=== PATIENT | male | born 1955 | race Caucasian/White ===

== ENCOUNTER 2022-05-07 09:06 | Inpatient (IN) ==
[2022-05-07 09:56] LABS: Basophils # 0.1 10*3/uL (0.0-0.2); Basophils % 0.5 % (0.0-0.8); Eosinophils # 0.3 10*3/uL (0.0-0.87); Eosinophils % 3.1 % (0.00-10.9); Hematocrit 33.5 VOL% (42.0-52.0); Hemoglobin 10.4 GM/DL (14.0-18.0); Immature Granulocytes Absolute 0.09 #; Lymphocytes # 0.7 10*3/uL (1.4-4.0); Lymphocytes % 7.8 % (21.2-54.2); Mean Corpuscular Volume 86.3 FL (87-102); Mean Platelet Volume 9.3 FL (9.6-12.0); Monocytes # 0.7 10*3/uL (0.11-0.8); Monocytes % 7.5 % (1.7-12.7); Neutrophils % 80.1 % (38.7-73.9); Platelet Count 191 T/CUMM (130-400); Red Blood Count 3.88 MC/CUMM (3.8-5.5); Red Cell Distribution Width 16.1 % (9.3-17.3); White Blood Count 9.5 T/CUMM (4-12)
[2022-05-07 10:16] LABS: Albumin 2.7 G/DL (3.4-5.0); Bilirubin,Total 2.1 MG/DL (0.20-1.00); Calcium 8.8 MG/DL (8.5-10.1); Osmolality,Calculated 296.3 MOS/KG (273-304); Potassium 4.4 MMOL/L (3.5-5.1); Total Protein 7.1 G/DL (6.4-8.2)
[2022-05-07 10:23] LABS: Risk Ratio 3.76
[2022-05-07] MEDS ORDERED: GLUCAGON 1 MG VIAL IM PRN (11:54)
[2022-05-07] MEDS ORDERED: ONDANSETRON 4 MG/2 ML VIAL IV PRN (12:00)
[2022-05-07 12:05] LABS: INR 1.1; PT Patient Result 11.9 SECS (10.1-12.1); Partial Thromboplastin Time 35.9 SECS (23.7-32.9)
[2022-05-07] MEDS ORDERED: DEXTROSE 10% 250 ML BAG IV PRN (13:08)
[2022-05-07] MEDS: SODIUM CHLORIDE 0.9% 1,000 ML IV SCH ×2 (13:25→20:16)
[2022-05-07] MEDS ORDERED: MIDAZOLAM 2 MG/2 ML VIAL IV ONE (13:30)
[2022-05-07] MEDS ORDERED: fentaNYL 100 MCG/2 ML VIAL IV ONE (13:30)
[2022-05-07] MEDS ORDERED: LEVOFLOXACIN INJ 500 MG/100 ML PREMIX IV ONE ×2 (13:30→13:35)
[2022-05-07] MEDS ORDERED: MORPHINE 2 MG/1 ML SYRINGE IV PRN (15:31)
[2022-05-07 16:20] LABS: % Iron Saturation 12.5 % (18-50); Ferritin 914.6 ng/mL (26-388)
[2022-05-07] MEDS: PANTOPRAZOLE 40 MG TABLET PO SCH (17:08)
[2022-05-07] MEDS: DOCUSATE SODIUM 100 MG CAPSULE PO SCH (20:37)
[2022-05-07] MEDS: ZALEPLON 5 MG CAPSULE PO PRN (23:02)
[2022-05-08] MEDS: SODIUM CHLORIDE 0.9% 1,000 ML IV SCH (03:12)
[2022-05-08 05:17] LABS: Basophils % 0.1 % (0.0-0.8); Hemoglobin 9.6 GM/DL (14.0-18.0); Immature Granulocytes % 1.8 %; Lymphocytes # 0.3 10*3/uL (1.4-4.0); Lymphocytes % 1.6 % (21.2-54.2); Mean Corpuscular Volume 86.1 FL (87-102); Mean Platelet Volume 9.3 FL (9.6-12.0); Monocytes # 0.8 10*3/uL (0.11-0.8); Monocytes % 4.8 % (1.7-12.7); Neutrophils % 91.7 % (38.7-73.9); Platelet Count 150 T/CUMM (130-400); Red Cell Distribution Width 16.3 % (9.3-17.3); White Blood Count 16.6 T/CUMM (4-12)
[2022-05-08 05:48] LABS: Albumin 2.2 G/DL (3.4-5.0); Bilirubin,Total 2.8 MG/DL (0.20-1.00); Calcium 8.1 MG/DL (8.5-10.1); Osmolality,Calculated 296.4 MOS/KG (273-304); Potassium 5.1 MMOL/L (3.5-5.1); Total Protein 6.4 G/DL (6.4-8.2)
[2022-05-08 05:50] LABS: Hypochromia Slight; Lymphocytes 3 % (20-55); Microcytosis Slight; Platelet Estimate Adequate; Total Cells Counted 100
[2022-05-08 07:24] LABS: Total Protein (Chem) 7.1 G/DL (6.4-8.3)
[2022-05-08] MEDS ORDERED: cefTRIAXone 1,000 MG in SODIUM CHLORIDE 0.9% 100 ML IV SCH (08:00)
[2022-05-08 09:25] LABS: Albumin (SPE) 3.8 G/DL (3.2-5.3); Albumin (SPE) Rel % 53.4 %; Alpha 1 (SPE) 0.4 G/DL (0.1-0.4); Alpha 2 (SPE) 1.1 G/DL (0.4-1.0); Alpha 2 (SPE) Rel % 14.9 %; Beta (SPE) Rel % 13.9 %; Gamma (SPE) 0.8 G/DL (0.7-1.7); Gamma (SPE) Rel % 11.8 %
[2022-05-08] MEDS: DOCUSATE SODIUM 100 MG CAPSULE PO SCH ×2 (09:36→20:25)
[2022-05-08] MEDS: PANTOPRAZOLE 40 MG TABLET PO SCH (09:36)
[2022-05-08] MEDS ORDERED: cefTRIAXone 1,000 MG in SODIUM CHLORIDE 0.9% 100 ML IV ONE (10:49)
[2022-05-08] MEDS ORDERED: DIAZEPAM 5 MG TABLET PO ONE (13:00)
[2022-05-08] MEDS ORDERED: ONDANSETRON 4 MG/2 ML VIAL ONE (13:16)
[2022-05-08] MEDS ORDERED: LIDOCAINE 2% 5 ML VIAL ONE (13:16)
[2022-05-08] MEDS ORDERED: SEVOFLURANE 1 UNIT/15 MINUTE INH ONE ×2 (13:16→15:22)
[2022-05-08] MEDS ORDERED: MIDAZOLAM 2 MG/2 ML VIAL ONE ×2 (13:16)
[2022-05-08] MEDS ORDERED: DEXAMETHASONE 4 MG/1 ML VIAL ONE (13:16)
[2022-05-08] MEDS ORDERED: fentaNYL 100 MCG/2 ML VIAL ONE ×2 (13:16→14:07)
[2022-05-08] MEDS ORDERED: SUCCINYLCHOLINE 200 MG/10 ML VIAL ONE (13:16)
[2022-05-08] MEDS ORDERED: propofoL 200 MG/20 ML VIAL IV ONE (13:16)
[2022-05-08] MEDS ORDERED: ROCURONIUM 50 MG/5 ML VIAL IV ONE (13:18)
[2022-05-08] MEDS ORDERED: LACTATED RINGERS 1,000 ML IV SCH (13:30)
[2022-05-08] MEDS ORDERED: PHENYLEPHRINE 1 MG/10 ML SYRINGE IV ONE (14:21)
[2022-05-08] MEDS ORDERED: PHENYLEPHRINE 10 MG/1 ML VIAL IV ONE (14:52)
[2022-05-08] MEDS ORDERED: LACTATED RINGERS 1,000 ML IV ONE (14:56)
[2022-05-08] MEDS ORDERED: SODIUM CHLORIDE 0.9% 250 ML IV ONE (14:56)
[2022-05-08] MEDS ORDERED: diphenhydrAMINE 50 MG/1 ML VIAL IV PRN (15:44)
[2022-05-08] MEDS ORDERED: ONDANSETRON 4 MG/2 ML VIAL IV PRN (15:44)
[2022-05-08] MEDS ORDERED: MEPERIDINE 25 MG/1 ML VIAL IV PRN (15:44)
[2022-05-08] MEDS ORDERED: PROMETHAZINE INJ 25 MG in SODIUM CHLORIDE 0.9% 50 ML IV PRN (15:44)
[2022-05-08 15:45] LABS: Bilirubin,Urine Small mg/dL (Negative); Blood, Urine Small mg/dL (Negative); Glucose,Urine (UA) Negative (Negative); Ketones,Urine 15 mg/dL (Negative); Nitrite,Urine Negative (Negative); Protein,Urine 30 mg/dL (Negative); RBC,Urine 23 /HPF (0-4); Squamous Epithelial Cell,Urine Occasional /HPF (0-10); Urine Appearance Clear (Clear); Urine Color Yellow (Yellow); Urine Specific Gravity 1.015 (1.001-1.035); Urine Urobilinogen 0.2 eU/dL (<2.0)
[2022-05-08] MEDS: HYDROmorphone 1 MG/1 ML SYRINGE IV PRN ×2 (16:00→16:05)
[2022-05-08] MEDS: BICALUTAMIDE 50 MG TABLET PO SCH (17:50)
[2022-05-08] MEDS: ZALEPLON 5 MG CAPSULE PO PRN (20:24)
[2022-05-09 05:47] LABS: Basophils % 0.2 % (0.0-0.8); Eosinophils % 0.2 % (0.00-10.9); Hematocrit 31.4 VOL% (42.0-52.0); Hemoglobin 9.7 GM/DL (14.0-18.0); Immature Granulocytes % 6.1 %; Immature Granulocytes Absolute 1.05 #; Lymphocytes # 0.8 10*3/uL (1.4-4.0); Lymphocytes % 4.4 % (21.2-54.2); Mean Corpuscular HGB Conc 30.9 GM/DL (32-36); Mean Corpuscular Volume 86.3 FL (87-102); Mean Platelet Volume 9.8 FL (9.6-12.0); Monocytes % 5.7 % (1.7-12.7); Neutrophils % 83.4 % (38.7-73.9); Platelet Count 168 T/CUMM (130-400); Red Blood Count 3.64 MC/CUMM (3.8-5.5); Red Cell Distribution Width 16.7 % (9.3-17.3); White Blood Count 17.3 T/CUMM (4-12)
[2022-05-09 06:08] LABS: Hypochromia Slight; Lymphocytes 2 % (20-55); Microcytosis Slight; Platelet Estimate Adequate; Total Cells Counted 100
[2022-05-09 06:17] LABS: Albumin 2.2 G/DL (3.4-5.0); Bilirubin,Total 1.6 MG/DL (0.20-1.00); Calcium 8.5 MG/DL (8.5-10.1); Osmolality,Calculated 298.4 MOS/KG (273-304); Potassium 5.4 MMOL/L (3.5-5.1); Total Protein 6.6 G/DL (6.4-8.2)
[2022-05-09] MEDS ORDERED: cefTRIAXone 1,000 MG VIAL IM SCH (08:00)
[2022-05-09] MEDS ORDERED: SODIUM POLYSTYRENE SULFATE 15 GM/60 ML BOTTLE PO ONE (08:00)
[2022-05-09] MEDS: BICALUTAMIDE 50 MG TABLET PO SCH (09:09)
[2022-05-09] MEDS: DOCUSATE SODIUM 100 MG CAPSULE PO SCH ×2 (09:09→21:52)
[2022-05-09] MEDS: PANTOPRAZOLE 40 MG TABLET PO SCH (09:09)
[2022-05-09] MEDS: cefTRIAXone 1,000 MG in SODIUM CHLORIDE 0.9% 100 ML IV SCH (10:23)
[2022-05-09] MEDS: FERRIC GLUCONATE COMPLEX 125 MG in SODIUM CHLORIDE 0.9% 100 ML IV SCH (11:18)
[2022-05-09] MEDS: SODIUM BICARB INJ 50 MEQ in SODIUM CHLORIDE 0.45% 1,000 ML IV SCH ×2 (12:35→23:57)
[2022-05-09] MEDS: ZALEPLON 5 MG CAPSULE PO PRN (21:52)
[2022-05-10 07:11] LABS: Basophils # 0.1 10*3/uL (0.0-0.2); Basophils % 0.6 % (0.0-0.8); Eosinophils # 0.7 10*3/uL (0.0-0.87); Eosinophils % 3.5 % (0.00-10.9); Hematocrit 31.1 VOL% (42.0-52.0); Hemoglobin 9.6 GM/DL (14.0-18.0); Immature Granulocytes % 8.2 %; Immature Granulocytes Absolute 1.57 #; Lymphocytes # 1.3 10*3/uL (1.4-4.0); Lymphocytes % 6.8 % (21.2-54.2); Mean Corpuscular HGB Conc 30.9 GM/DL (32-36); Mean Corpuscular Volume 86.6 FL (87-102); Mean Platelet Volume 9.4 FL (9.6-12.0); Monocytes # 1.3 10*3/uL (0.11-0.8); Neutrophils % 73.9 % (38.7-73.9); Platelet Count 157 T/CUMM (130-400); Red Blood Count 3.59 MC/CUMM (3.8-5.5); Red Cell Distribution Width 16.9 % (9.3-17.3); White Blood Count 19.3 T/CUMM (4-12)
[2022-05-10 07:30] LABS: Albumin 2.1 G/DL (3.4-5.0); Bilirubin,Total 1.3 MG/DL (0.20-1.00); Calcium 8.8 MG/DL (8.5-10.1); Potassium 4.7 MMOL/L (3.5-5.1); Total Protein 6.6 G/DL (6.4-8.2)
[2022-05-10 07:33] LABS: Band Neutrophils 1 % (0-10); Eosinophils 6 % (0-10); Lymphocytes 4 % (20-55); Platelet Estimate Adequate; Total Cells Counted 100
[2022-05-10 07:34] LABS: Hypochromia Slight; Microcytosis Slight
[2022-05-10] MEDS: BICALUTAMIDE 50 MG TABLET PO SCH (08:59)
[2022-05-10] MEDS: PANTOPRAZOLE 40 MG TABLET PO SCH (09:00)
[2022-05-10] MEDS: DOCUSATE SODIUM 100 MG CAPSULE PO SCH ×2 (09:00→21:00)
[2022-05-10 10:09] LABS: Mucus,Urine Occasional /LPF (Occasional); RBC,Urine 606 /HPF (0-4)
[2022-05-10 10:10] LABS: Bilirubin,Urine Negative (Negative); Blood, Urine Large mg/dL (Negative); Glucose,Urine (UA) Negative (Negative); Ketones,Urine Negative (Negative); Nitrite,Urine Negative (Negative); Protein,Urine 100 mg/dL (Negative); Urine Appearance Slightly Cloudy (Clear); Urine Color Dark Yellow (Yellow); Urine Specific Gravity 1.015 (1.001-1.035); Urine Urobilinogen 0.2 eU/dL (<2.0); Urine pH 5.5 (4.5-8.0)
[2022-05-10] MEDS: SODIUM BICARB INJ 50 MEQ in SODIUM CHLORIDE 0.45% 1,000 ML IV SCH ×4 (10:46→22:56)
[2022-05-10] MEDS: FERRIC GLUCONATE COMPLEX 125 MG in SODIUM CHLORIDE 0.9% 100 ML IV SCH (10:56)
[2022-05-10] MEDS: cefTRIAXone 1,000 MG in SODIUM CHLORIDE 0.9% 100 ML IV SCH (12:04)
[2022-05-10] MEDS: HYDROmorphone 1 MG/1 ML SYRINGE IV PRN (22:34)
[2022-05-11] MEDS: SODIUM BICARB INJ 50 MEQ in SODIUM CHLORIDE 0.45% 1,000 ML IV SCH (04:30)
[2022-05-11 04:59] LABS: Basophils # 0.1 10*3/uL (0.0-0.2); Basophils % 0.5 % (0.0-0.8); Eosinophils # 0.6 10*3/uL (0.0-0.87); Eosinophils % 3.7 % (0.00-10.9); Hematocrit 29.9 VOL% (42.0-52.0); Immature Granulocytes % 6.3 %; Immature Granulocytes Absolute 1.01 #; Lymphocytes # 1.6 10*3/uL (1.4-4.0); Lymphocytes % 9.9 % (21.2-54.2); Mean Corpuscular HGB Conc 30.1 GM/DL (32-36); Mean Corpuscular Volume 86.7 FL (87-102); Mean Platelet Volume 10.2 FL (9.6-12.0); Monocytes # 1.4 10*3/uL (0.11-0.8); Monocytes % 8.5 % (1.7-12.7); Neutrophils % 71.1 % (38.7-73.9); Platelet Count 151 T/CUMM (130-400); Red Blood Count 3.45 MC/CUMM (3.8-5.5); Red Cell Distribution Width 17.1 % (9.3-17.3)
[2022-05-11 05:39] LABS: Eosinophils 4 % (0-10); Hypochromia 1+; Lymphocytes 8 % (20-55); Metamyelocytes 2 %; Microcytosis 1+; Platelet Estimate Adequate; Promyelocytes 1 %; Total Cells Counted 100
[2022-05-11 05:46] LABS: Albumin 1.9 G/DL (3.4-5.0); Bilirubin,Total 0.8 MG/DL (0.20-1.00); Calcium 8.1 MG/DL (8.5-10.1); Total Protein 6.1 G/DL (6.4-8.2)
[2022-05-11] MEDS: BICALUTAMIDE 50 MG TABLET PO SCH (08:59)
[2022-05-11] MEDS: DOCUSATE SODIUM 100 MG CAPSULE PO SCH ×2 (08:59→20:36)
[2022-05-11] MEDS: PANTOPRAZOLE 40 MG TABLET PO SCH (08:59)
[2022-05-11] MEDS: FERRIC GLUCONATE COMPLEX 125 MG in SODIUM CHLORIDE 0.9% 100 ML IV SCH (09:31)
[2022-05-11] MEDS: cefTRIAXone 1,000 MG in SODIUM CHLORIDE 0.9% 100 ML IV SCH (11:08)
[2022-05-11] MEDS: ALBUTEROL/IPRATROPIUM 3 ML NEB RESP TX SCH ×3 (11:23→20:04)
[2022-05-11] MEDS: CALCIUM (CARBONATE)/VITAMIN D 600 MG-400 UNIT TABLET PO SCH ×2 (12:36→20:36)
[2022-05-11] MEDS: SODIUM BICARBONATE 650 MG TABLET PO SCH ×2 (15:51→20:36)
[2022-05-11] MEDS: HYDROmorphone 1 MG/1 ML SYRINGE IV PRN (22:13)
[2022-05-11 22:26] LABS: Total Protein 24 Hr Ur Result 3960 MG/24HR (0-149.1); Total Volume,Urine 3000 ML (400-2000)
[2022-05-12] MEDS: ALBUTEROL/IPRATROPIUM 3 ML NEB RESP TX SCH ×5 (00:42→23:57)
[2022-05-12 05:34] LABS: Basophils # 0.1 10*3/uL (0.0-0.2); Basophils % 0.8 % (0.0-0.8); Eosinophils # 0.6 10*3/uL (0.0-0.87); Hematocrit 29.6 VOL% (42.0-52.0); Immature Granulocytes % 10.5 %; Immature Granulocytes Absolute 1.67 #; Lymphocytes # 1.7 10*3/uL (1.4-4.0); Lymphocytes % 10.9 % (21.2-54.2); Mean Corpuscular HGB Conc 30.4 GM/DL (32-36); Mean Corpuscular Volume 86.3 FL (87-102); Monocytes # 1.4 10*3/uL (0.11-0.8); Monocytes % 8.8 % (1.7-12.7); Platelet Count 158 T/CUMM (130-400); Red Blood Count 3.43 MC/CUMM (3.8-5.5); Red Cell Distribution Width 16.7 % (9.3-17.3); White Blood Count 15.9 T/CUMM (4-12)
[2022-05-12 06:00] LABS: Albumin 1.9 G/DL (3.4-5.0); Bilirubin,Total 0.6 MG/DL (0.20-1.00); Calcium 8.5 MG/DL (8.5-10.1); Osmolality,Calculated 305.8 MOS/KG (273-304); Potassium 3.8 MMOL/L (3.5-5.1); Total Protein 6.1 G/DL (6.4-8.2)
[2022-05-12 06:26] LABS: Folate 8.39 NG/ML (5.38-24.0)
[2022-05-12 08:24] LABS: Band Neutrophils 1 % (0-10); Eosinophils 5 % (0-10); Lymphocytes 8 % (20-55); Microcytosis 1+; Promyelocytes 2 %; Total Cells Counted 100
[2022-05-12 08:25] LABS: Hypochromia Slight; Platelet Estimate Adequate
[2022-05-12] MEDS: BICALUTAMIDE 50 MG TABLET PO SCH (09:43)
[2022-05-12] MEDS: CALCIUM (CARBONATE)/VITAMIN D 600 MG-400 UNIT TABLET PO SCH ×2 (09:44→20:24)
[2022-05-12] MEDS: DOCUSATE SODIUM 100 MG CAPSULE PO SCH ×2 (09:44→20:24)
[2022-05-12] MEDS: SODIUM BICARBONATE 650 MG TABLET PO SCH ×3 (09:44→20:24)
[2022-05-12] MEDS: PANTOPRAZOLE 40 MG TABLET PO SCH (09:44)
[2022-05-12] MEDS: FERRIC GLUCONATE COMPLEX 125 MG in SODIUM CHLORIDE 0.9% 100 ML IV SCH (09:46)
[2022-05-12] MEDS: cefTRIAXone 1,000 MG in SODIUM CHLORIDE 0.9% 100 ML IV SCH (11:14)
[2022-05-12] MEDS: HYDROmorphone 1 MG/1 ML SYRINGE IV PRN (21:45)
[2022-05-13 05:58] LABS: Basophils # 0.2 10*3/uL (0.0-0.2); Basophils % 0.9 % (0.0-0.8); Eosinophils # 0.6 10*3/uL (0.0-0.87); Eosinophils % 3.4 % (0.00-10.9); Hematocrit 29.2 VOL% (42.0-52.0); Immature Granulocytes % 15.8 %; Immature Granulocytes Absolute 2.79 #; Lymphocytes # 1.7 10*3/uL (1.4-4.0); Lymphocytes % 9.6 % (21.2-54.2); Mean Corpuscular HGB Conc 30.8 GM/DL (32-36); Mean Corpuscular Volume 86.6 FL (87-102); Mean Platelet Volume 9.6 FL (9.6-12.0); Monocytes # 1.4 10*3/uL (0.11-0.8); Monocytes % 7.8 % (1.7-12.7); NRBC # 0.02 10*3/uL; Neutrophils % 62.5 % (38.7-73.9); Platelet Count 171 T/CUMM (130-400); Red Blood Count 3.37 MC/CUMM (3.8-5.5); Red Cell Distribution Width 16.6 % (9.3-17.3); White Blood Count 17.7 T/CUMM (4-12)
[2022-05-13 06:19] LABS: Band Neutrophils 4 % (0-10); Eosinophils 3 % (0-10); Lymphocytes 10 % (20-55); Total Cells Counted 100
[2022-05-13 06:20] LABS: Platelet Estimate Adequate
[2022-05-13 06:21] LABS: Hypochromia Slight; Microcytosis Slight
[2022-05-13 06:25] LABS: Bilirubin,Total 0.6 MG/DL (0.20-1.00); Calcium 8.6 MG/DL (8.5-10.1); Osmolality,Calculated 306.6 MOS/KG (273-304); Potassium 3.8 MMOL/L (3.5-5.1); Total Protein 6.3 G/DL (6.4-8.2)
[2022-05-13] MEDS: ALBUTEROL/IPRATROPIUM 3 ML NEB RESP TX SCH ×3 (07:09→19:44)
[2022-05-13] MEDS ORDERED: ERGOCALCIFEROL 50,000 UNIT CAPSULE PO SCH (09:00)
[2022-05-13] MEDS: BICALUTAMIDE 50 MG TABLET PO SCH (09:24)
[2022-05-13] MEDS: SODIUM BICARBONATE 650 MG TABLET PO SCH ×3 (09:24→20:06)
[2022-05-13 09:25] LABS: Albumin (UPE) Rel % 32.7 %; Alpha 1 (UPE) 233.6 MG/24H; Alpha 1 (UPE) Rel % 5.9 %; Alpha 2 (UPE) 649.4 MG/24H; Alpha 2 (UPE) Rel % 16.4 %; Beta (UPE) 930.6 MG/24H; Beta (UPE) Rel % 23.5 %; Gamma (UPE) 851.4 MG/24H; Gamma (UPE) Rel % 21.5 %
[2022-05-13] MEDS: PANTOPRAZOLE 40 MG TABLET PO SCH (09:25)
[2022-05-13] MEDS: DOCUSATE SODIUM 100 MG CAPSULE PO SCH ×2 (09:25→20:06)
[2022-05-13] MEDS: amLODIPine 2.5 MG TABLET PO SCH (09:25)
[2022-05-13] MEDS: DEXAMETHASONE 4 MG/1 ML VIAL IV SCH ×2 (09:26→20:07)
[2022-05-13] MEDS: FERRIC GLUCONATE COMPLEX 125 MG in SODIUM CHLORIDE 0.9% 100 ML IV SCH (09:31)
[2022-05-13] MEDS: CALCIUM (CARBONATE)/VITAMIN D 600 MG-400 UNIT TABLET PO SCH ×2 (12:17→20:06)
[2022-05-13] MEDS: cefTRIAXone 1,000 MG in SODIUM CHLORIDE 0.9% 100 ML IV SCH (12:20)
[2022-05-13] MEDS ORDERED: ZINC OXIDE PASTE 113 GM TUBE TOP PRN (12:32)
[2022-05-13] MEDS: ZALEPLON 5 MG CAPSULE PO PRN (20:11)
[2022-05-14] MEDS: ALBUTEROL/IPRATROPIUM 3 ML NEB RESP TX SCH ×4 (00:42→19:56)
[2022-05-14 05:09] LABS: Basophils # 0.1 10*3/uL (0.0-0.2); Basophils % 0.7 % (0.0-0.8); Eosinophils # 0.1 10*3/uL (0.0-0.87); Eosinophils % 0.4 % (0.00-10.9); Hematocrit 29.3 VOL% (42.0-52.0); Hemoglobin 8.8 GM/DL (14.0-18.0); Immature Granulocytes % 16.7 %; Immature Granulocytes Absolute 2.82 #; Lymphocytes # 1.4 10*3/uL (1.4-4.0); Lymphocytes % 8.2 % (21.2-54.2); Mean Corpuscular Volume 86.4 FL (87-102); Mean Platelet Volume 9.4 FL (9.6-12.0); Monocytes # 0.7 10*3/uL (0.11-0.8); Platelet Count 183 T/CUMM (130-400); Red Blood Count 3.39 MC/CUMM (3.8-5.5); Red Cell Distribution Width 16.5 % (9.3-17.3); White Blood Count 16.9 T/CUMM (4-12)
[2022-05-14 05:34] LABS: Band Neutrophils 5 % (0-10); Eosinophils 1 % (0-10); Hypochromia Slight; Lymphocytes 6 % (20-55); Metamyelocytes 1 %; Microcytosis Slight; Platelet Estimate Adequate; Polychromasia Slight; Total Cells Counted 100
[2022-05-14 05:37] LABS: Albumin 2.1 G/DL (3.4-5.0); Bilirubin,Total 0.4 MG/DL (0.20-1.00); Calcium 8.7 MG/DL (8.5-10.1); Osmolality,Calculated 308.4 MOS/KG (273-304); Potassium 4.3 MMOL/L (3.5-5.1); Total Protein 6.1 G/DL (6.4-8.2)
[2022-05-14] MEDS: DOCUSATE SODIUM 100 MG CAPSULE PO SCH ×2 (10:36→20:43)
[2022-05-14] MEDS: PANTOPRAZOLE 40 MG TABLET PO SCH (10:37)
[2022-05-14] MEDS: BICALUTAMIDE 50 MG TABLET PO SCH (10:37)
[2022-05-14] MEDS: amLODIPine 2.5 MG TABLET PO SCH (10:37)
[2022-05-14] MEDS ORDERED: DEXAMETHASONE 10 MG/1 ML VIAL IV ONE (12:00)
[2022-05-14] MEDS ORDERED: FAMOTIDINE INJ 40 MG in SODIUM CHLORIDE 0.9% 100 ML IV ONE (12:00)
[2022-05-14] MEDS ORDERED: PALONOSETRON 0.25 MG/5 ML VIAL IV ONE (12:00)
[2022-05-14] MEDS ORDERED: diphenhydrAMINE 50 MG/1 ML VIAL IV SCH (12:00)
[2022-05-14] MEDS: CALCIUM (CARBONATE)/VITAMIN D 600 MG-400 UNIT TABLET PO SCH ×2 (12:51→20:43)
[2022-05-14] MEDS: ENOXAPARIN 40 MG/0.4 ML SYRINGE SUBCUT SCH (12:51)
[2022-05-14] MEDS ORDERED: DOCETAXEL IV ONE (13:00)
[2022-05-14] MEDS ORDERED: SODIUM CHLORIDE 0.9% IV ONE (13:00)
[2022-05-14] MEDS: ZALEPLON 5 MG CAPSULE PO PRN (20:43)
[2022-05-15] MEDS: ALBUTEROL/IPRATROPIUM 3 ML NEB RESP TX SCH ×4 (00:55→19:40)
[2022-05-15 04:50] LABS: Basophils # 0.1 10*3/uL (0.0-0.2); Basophils % 0.7 % (0.0-0.8); Eosinophils # 0.1 10*3/uL (0.0-0.87); Eosinophils % 0.9 % (0.00-10.9); Hematocrit 27.3 VOL% (42.0-52.0); Hemoglobin 8.2 GM/DL (14.0-18.0); Immature Granulocytes % 22.2 %; Immature Granulocytes Absolute 3.26 #; Lymphocytes # 1.8 10*3/uL (1.4-4.0); Lymphocytes % 12.2 % (21.2-54.2); Mean Corpuscular Volume 88.3 FL (87-102); Mean Platelet Volume 10.2 FL (9.6-12.0); Monocytes # 0.6 10*3/uL (0.11-0.8); Platelet Count 208 T/CUMM (130-400); Red Blood Count 3.09 MC/CUMM (3.8-5.5); Red Cell Distribution Width 16.7 % (9.3-17.3); White Blood Count 14.7 T/CUMM (4-12)
[2022-05-15 05:10] LABS: Alanine Aminotransferase 33 U/L (16-61); Albumin 1.9 G/DL (3.4-5.0); Alkaline Phosphatase 185 U/L (45-117); Aspartate Amino Transferase 46 U/L (0-37); Bilirubin,Total < 0.39 MG/DL (0.20-1.00); Blood Urea Nitrogen 52 MG/DL (7-18); Calcium 8.1 MG/DL (8.5-10.1); Carbon Dioxide 24 MMOL/L (21-32); Chloride 116 MMOL/L (98-107); Glucose 142 MG/DL (74-106); Osmolality,Calculated 307.4 MOS/KG (273-304); Potassium 4.1 MMOL/L (3.5-5.1); Sodium 147 MMOL/L (136-145); Total Protein 5.7 G/DL (6.4-8.2)
[2022-05-15 05:14] LABS: Band Neutrophils 2 % (0-10); Eosinophils 1 % (0-10); Hypochromia Slight; Lymphocytes 12 % (20-55); Metamyelocytes 3 %; Microcytosis 1+; Total Cells Counted 100
[2022-05-15 05:15] LABS: Platelet Estimate Normal
[2022-05-15] MEDS: DOCUSATE SODIUM 100 MG CAPSULE PO SCH ×2 (09:50→20:48)
[2022-05-15] MEDS: BICALUTAMIDE 50 MG TABLET PO SCH (09:50)
[2022-05-15] MEDS: CALCIUM (CARBONATE)/VITAMIN D 600 MG-400 UNIT TABLET PO SCH ×2 (09:50→20:48)
[2022-05-15] MEDS: PANTOPRAZOLE 40 MG TABLET PO SCH (09:50)
[2022-05-15] MEDS: amLODIPine 2.5 MG TABLET PO SCH (09:50)
[2022-05-15] MEDS: ENOXAPARIN 40 MG/0.4 ML SYRINGE SUBCUT SCH (09:51)
[2022-05-15] MEDS: POLYETHYLENE GLYCOL POWDER 17 GM PACK PO SCH (09:51)
[2022-05-16] MEDS: ALBUTEROL/IPRATROPIUM 3 ML NEB RESP TX SCH ×4 (00:13→19:24)
[2022-05-16 04:14] LABS: Basophils # 0.1 10*3/uL (0.0-0.2); Basophils % 0.7 % (0.0-0.8); Eosinophils # 0.5 10*3/uL (0.0-0.87); Eosinophils % 3.3 % (0.00-10.9); Hemoglobin 7.6 GM/DL (14.0-18.0); Immature Granulocytes % 14.1 %; Immature Granulocytes Absolute 1.97 #; Lymphocytes # 2.3 10*3/uL (1.4-4.0); Lymphocytes % 16.3 % (21.2-54.2); Mean Corpuscular HGB Conc 29.2 GM/DL (32-36); Mean Corpuscular Volume 89.7 FL (87-102); Mean Platelet Volume 10.2 FL (9.6-12.0); Monocytes # 0.6 10*3/uL (0.11-0.8); Monocytes % 4.1 % (1.7-12.7); NRBC # 0.02 10*3/uL; Neutrophils % 61.5 % (38.7-73.9); Platelet Count 201 T/CUMM (130-400); Red Cell Distribution Width 17.1 % (9.3-17.3)
[2022-05-16 04:34] LABS: Albumin 2.2 G/DL (3.4-5.0); Bilirubin,Total 0.4 MG/DL (0.20-1.00); Osmolality,Calculated 305.7 MOS/KG (273-304); Potassium 4.1 MMOL/L (3.5-5.1); Total Protein 5.7 G/DL (6.4-8.2)
[2022-05-16 04:41] LABS: Band Neutrophils 5 % (0-10); Eosinophils 1 % (0-10); Lymphocytes 8 % (20-55); Myelocytes 3 %; Total Cells Counted 100
[2022-05-16 04:42] LABS: Hypochromia Slight; Microcytosis Slight; Platelet Estimate Adequate
[2022-05-16] MEDS: CALCIUM (CARBONATE)/VITAMIN D 600 MG-400 UNIT TABLET PO SCH ×2 (09:50→20:06)
[2022-05-16] MEDS: DOCUSATE SODIUM 100 MG CAPSULE PO SCH ×2 (09:50→20:06)
[2022-05-16] MEDS: POLYETHYLENE GLYCOL POWDER 17 GM PACK PO SCH (09:50)
[2022-05-16] MEDS: amLODIPine 2.5 MG TABLET PO SCH (09:50)
[2022-05-16] MEDS: PANTOPRAZOLE 40 MG TABLET PO SCH (09:51)
[2022-05-16] MEDS: FERROUS SULFATE 325 MG TABLET PO SCH (09:51)
[2022-05-16] MEDS: ENOXAPARIN 40 MG/0.4 ML SYRINGE SUBCUT SCH (09:51)
[2022-05-16] MEDS: BICALUTAMIDE 50 MG TABLET PO SCH (09:51)
[2022-05-17] MEDS: ALBUTEROL/IPRATROPIUM 3 ML NEB RESP TX SCH ×4 (02:24→13:10)
[2022-05-17 05:10] LABS: Basophils # 0.1 10*3/uL (0.0-0.2); Basophils % 0.6 % (0.0-0.8); Eosinophils # 0.4 10*3/uL (0.0-0.87); Eosinophils % 3.3 % (0.00-10.9); Hematocrit 24.6 VOL% (42.0-52.0); Hemoglobin 7.2 GM/DL (14.0-18.0); Immature Granulocytes % 8.3 %; Immature Granulocytes Absolute 1.07 #; Lymphocytes # 1.9 10*3/uL (1.4-4.0); Lymphocytes % 14.5 % (21.2-54.2); Mean Corpuscular HGB Conc 29.3 GM/DL (32-36); Mean Corpuscular Volume 89.1 FL (87-102); Mean Platelet Volume 10.3 FL (9.6-12.0); Monocytes # 0.6 10*3/uL (0.11-0.8); Monocytes % 4.4 % (1.7-12.7); NRBC # 0.03 10*3/uL; Neutrophils % 68.9 % (38.7-73.9); Platelet Count 190 T/CUMM (130-400); Red Blood Count 2.76 MC/CUMM (3.8-5.5); Red Cell Distribution Width 16.8 % (9.3-17.3); White Blood Count 12.9 T/CUMM (4-12)
[2022-05-17 05:31] LABS: Bilirubin,Total 0.5 MG/DL (0.20-1.00); Calcium 8.1 MG/DL (8.5-10.1); Osmolality,Calculated 302.6 MOS/KG (273-304); Potassium 4.3 MMOL/L (3.5-5.1); Total Protein 5.6 G/DL (6.4-8.2)
[2022-05-17 05:47] LABS: Eosinophils 3 % (0-10); Lymphocytes 9 % (20-55); Total Cells Counted 100
[2022-05-17 05:48] LABS: Hypochromia Slight; Microcytosis Slight; Platelet Estimate Adequate
[2022-05-17] MEDS ORDERED: MAGNESIUM SULF RIDER 2 GM/50 ML PREMIX IV ONE (07:49)
[2022-05-17] MEDS ORDERED: LEUPROLIDE 7.5 MG SUBCUT ONE ×2 (09:00→11:30)
[2022-05-17] MEDS: POLYETHYLENE GLYCOL POWDER 17 GM PACK PO SCH (10:17)
[2022-05-17] MEDS: CALCIUM (CARBONATE)/VITAMIN D 600 MG-400 UNIT TABLET PO SCH (10:17)
[2022-05-17] MEDS: DOCUSATE SODIUM 100 MG CAPSULE PO SCH (10:18)
[2022-05-17] MEDS: amLODIPine 2.5 MG TABLET PO SCH (10:18)
[2022-05-17] MEDS: PANTOPRAZOLE 40 MG TABLET PO SCH (10:18)
[2022-05-17] MEDS: BICALUTAMIDE 50 MG TABLET PO SCH (10:19)
[2022-05-17] MEDS: FERROUS SULFATE 325 MG TABLET PO SCH (10:19)
[2022-05-17] MEDS: ENOXAPARIN 40 MG/0.4 ML SYRINGE SUBCUT SCH (10:26)
[2022-05-17 14:13] VITALS: BP 99/61
== END 2022-05-17 14:12 | DRG 715 ==
LOC: EDUNIT# → EDBD → N.ED 09:06 → SUATTDRO 11:54 → N.EDINP 11:54 → N.TELES 13:41
PROVIDERS: ADMIT Family Medicine; ATTEND Internal Medicine